=== PATIENT | female | born 1970 | race Hispanic/Latino ===

== ENCOUNTER 2016-12-01 07:22 | Day surgery (SDC) | payer BC ==
[2016-12-01] MEDS ORDERED: NACL 0.9% 500 ML 500 ML IV SCH (08:00)
[2016-12-01] MEDS ORDERED: ECOTRIN PO ONE (10:00)
[2016-12-01] MEDS ORDERED: HEPARIN/NS 5000 UNIT/500ML(CATH LAB) 1,000 ML IR ONE (10:03)
[2016-12-01] MEDS ORDERED: CALAN ONE (10:03)
[2016-12-01] MEDS ORDERED: HEPARIN 10,000 UNITS/10 ML ONE (10:03)
[2016-12-01] MEDS ORDERED: XYLOCAINE 2% INFILTRATI ONE (10:03)
[2016-12-01] MEDS ORDERED: NITROGLYCERIN SYRINGE 3 ML ONE (10:04)
[2016-12-01] MEDS ORDERED: SUBLIMAZE ONE (10:05)
[2016-12-01] MEDS ORDERED: VERSED ONE (10:05)
--- NOTE | 2016-12-01 11:28 | Short Stay Summary ---
Short Stay Documentation Date of service: 12/01/16 - History H&P: obtained from office - Allergies and Medications Current Medications: Allergies No Known Allergies Allergy (Verified 12/01/16 09:24) Home Medications Medication Instructions Recorded Confirmed Last Taken Type Metoprolol [Lopressor TAB] 25 mg PO DAILY 12/01/16 12/01/16 11/30/16 History 25mg Active Medications Sodium Chloride (Nacl 0.9% 500 Ml) 500 mls @ 50 mls/hr IV DIRECT WANDA Stop: 12/01/16 17:59 - Brief post op/procedure progress note Date of procedure: 12/01/16 Pre-op diagnosis: chest pain Post-op diagnosis: same Procedure: see report Anesthesia: local Estimated blood loss: none Pathology: none - Disposition Condition at discharge: Fair Disposition: DISCHARGED TO HOME OR SELFCARE - Discharge Diagnoses (1) Chest pain Status: Chronic Qualifiers: Chest pain type: unspecified Ischemic chest pain type: I Qualified Code(s ): R07.9 - Chest pain, unspecified (2) Morbid obesity Status: Chronic Qualifiers: Obesity type: due to excess calories Qualified Code(s): E66.01 - Morbid ( severe) obesity due to excess calories Short Stay Discharge Plan Activity: advance as tolerated Diet: low fat, low cholesterol Wound: keep clean and dry Follow up with: ELVIN MONGE MD [Staff Physician] - 7 Days
[2016-12-01] MEDS ORDERED: NORCO 5/325 PO ONE (12:00)
[2016-12-01] MEDS ORDERED: ZOFRAN ONE (13:32)
--- NOTE | 2016-12-01 13:33 | Cardiac Catherization Report ---
ORDERED BY: ____ This is a 46-year-old female with obesity, has been having chest pain on exertion, had a treadmill stress test, negative treadmill, but had chest pain during the exertion and is here for a left heart catheterization. Left heart catheterization performed via the right radial artery, sterile technique, local anesthesia, 6-[place]oz[place] sheath was inserted. Following findings: Left system engaged with JL3.5 catheter: 1. The left main is a medium caliber vessel is patent. LAD is a medium caliber vessel, patent from proximally to mid to distal becomes a small caliber vessel, is patent. Diagonal 1 small caliber vessels, is patent. Circumflex codominant vessel medium caliber and AV groove is patent. OM1 and OM2 are moderate tortuosity small to medium caliber vessel is patent. 2. RCA was engaged with JR4 catheter, medium caliber vessel is patent, proximally there is a small PDA comes off as patent. RCA engaged with JR4 catheter, is a medium caliber vessel, small PDA patent proximally and distal patent. LV gram done in TAMAZIGHT and MATHIS view shows normal LV function, LVEDP at 20 mmHg. LV is 154/20. Aortic is 150/73, no gradient across the aortic valve on pullback. 5-[place] catheters were taken over a guidewire, 6-[place] radial sheath was discontinued. Radial dressing applied. No hematoma. No bleeding. SUMMARY: Patent coronary is codominant vessel. Normal LV function, normal left end-diastolic pressure. Continued risk factor modification discussed with the patient and the patient's family. JOB# [id number] LILIAM/RENATE
[2016-12-01] MEDS ORDERED: ZOFRAN IV ONE (13:48)
[2016-12-01 14:01] VITALS: BP 118/61
== END 2016-12-01 14:30 | disposition home or self-care (01) ==
LOC: EDBD 07:22 → OPU 07:22
PROVIDERS: ATTEND Internal Medicine
DX: R94.39 Abnormal result of other cardiovascular function study (principal); R07.9 Chest pain, unspecified; E78.5 Hyperlipidemia, unspecified; I10 Essential (primary) hypertension; E03.9 Hypothyroidism, unspecified; E66.9 Obesity, unspecified; Z68.41 Body mass index [BMI] 40.0-44.9, adult; Z79.899 Other long term (current) drug therapy; Z90.49 Acquired absence of other specified parts of digestive tract; Z90.710 Acquired absence of both cervix and uterus; Z83.3 Family history of diabetes mellitus; Z82.49 Family history of ischemic heart disease and other diseases of the circulatory system
CPT/HCPCS: 93005; 93010; 93458; C1894; J1644; J2250; J2405; J3010; J7040; Q9967